=== PATIENT | male | born 1950 | race African-American/Black ===

== ENCOUNTER 2018-07-11 04:58 | Emergency (ER) | payer MEDICARE, OTHER ==
--- NOTE | 2018-07-11 05:25 | ER Document Report ---
ED General - General Chief Complaint: Hip Pain Stated Complaint: HIP INJURY Time Seen by Provider: 07/11/18 05:21 Notes: 68-year-old male diabetic presents with "hip pain" onset yesterday while mowing the lawn. He was pushing a lawnmower down an embankment and pulled back extending his back and lower body to keep it from falling down and experienced pain in his left buttock. When he says hip he points at his left SI joint. It sometimes radiates down the leg but not past the thigh he has no numbness or tingling. He has no fever or chills. Is been walking but limping some. Is not taking any medication. He denies fever chills or neuro symptoms. Denies a history of slipped disc or sciatica. TRAVEL OUTSIDE OF THE [place] IN LAST 30 DAYS: No - Related Data Allergies/Adverse Reactions: No Known Allergies Allergy (Verified 09/16/12 22:04) Past Medical History - Social History Smoking Status: Unknown if Ever Smoked Family History: None - Medical History Medical History: Other - Diabetes - Past Medical History Cardiac Medical History: Reports: Hx Hypertension Denies: Hx Coronary Artery Disease, Hx Heart Attack Pulmonary Medical History: Denies: Hx Asthma, Hx Bronchitis, Hx COPD, Hx Pneumonia Neurological Medical History: Denies: Hx Cerebrovascular Accident, Hx Seizures Endocrine Medical History: Reports: Hx Diabetes Mellitus Type 2 Musculoskeletal Medical History: Denies Hx Arthritis Past Surgical History: Denies: Hx Pacemaker - Immunizations Immunizations up to date: Yes Hx Diphtheria, Pertussis, Tetanus Vaccination: Yes Review of Systems - Review of Systems Notes: REVIEW OF SYSTEMS GEN: Denies fever, chills, weight loss ENT: Denies sore throat, nasal discharge, ear pain EYES: Denies blurry vision, eye pain, discharge CV: Denies chest pain, palpitations, edema RESP: Denies cough, shortness of breath, wheezing GI: Denies abdominal pain, nausea, vomiting, diarrhea MSK: Buttock pain, SKIN: Denies rash, skin lesions LYMPH: Denies swollen glands/lymph nodes NEURO: Denies headache, focal weakness or numbness, dizziness PSYCH: Denies depression, suicidal or homicidal ideation PHYSICAL EXAMINATION General: No acute distress, well-nourished Head: Atraumatic, normocephalic ENT: Mouth normal, oropharynx moist, no exudates or tonsillar enlargement Eyes: Conjunctiva normal, pupils equal, lids normal Neck: No JVD, supple, no guarding CVS: Normal rate, regular rhythm, no murmurs Resp: No resp distress, equal and normal breath sounds bilaterally GI: Nondistended, soft, no tenderness to palpation, no rebound or guarding Ext: No deformities, no edema, normal range of motion in upper and lower ext no pain on axial loading of the hip. Negative straight leg raise test. Hip and buttock X experience no pain with full range of motion of the hip with the knee extended, however the Ilene test is positive Back: No CVA or midline TTP. Minimal tenderness at the left SI joint region. No midline lumbar tenderness. Skin: No rash, warm Lymphatic: No lymphadeopathy noted Neuro: Awake, alert. Face symmetric. GCS 15. Physical Exam - Vital signs Vitals: Temp Pulse Resp BP Pulse Ox 98.2 F 94 18 159/78 H 97 07/11/18 04:58 07/11/18 04:58 07/11/18 04:58 07/11/18 04:58 07/11/18 04:58 Course - Re-evaluation Re-evalutation: 07/11/18 05:33 Patient presents with hip pain which actually seems to be pain around the SI joint on the left side. The hip range of motion is normal, the gait is intact and there is no pain on axial loading or fever so I doubt septic hip or acute arthritis. Also doubt radiculopathy or fracture given the mechanism and exam. Will check an x-ray just to rule out any kind of unexpected inflammation of the left SI joint, or joint widening associated with trauma, however I do not believe the mechanism supports this. If negative the patient will be discharged with supportive care to follow-up with primary. Will avoid NSAIDs for possible CKD, avoid steroids secondary to diabetes, encourage Tylenol and ice. 07/11/18 06:11 X-ray shows DJD of sacroiliac joints. This is likely a strain on top of arthritis. Tylenol heat and follow-up primary care I have discussed with the patient there likely diagnosis, aftercare plan, follow-up plans and my usual and customary return precautions. They verbalized understanding of this. - Vital Signs Vital signs: Temp Pulse Resp BP Pulse Ox 98.2 F 94 18 159/78 H 97 07/11/18 04:58 07/11/18 04:58 07/11/18 04:58 07/11/18 04:58 07/11/18 04:58 - Diagnostic Test Radiology reviewed: Image reviewed, Reports reviewed Discharge - Discharge Clinical Impression: Strain of sacroiliac ligament Qualifiers: Encounter type: initial encounter Qualified Code(s): S33.6XXA - Sprain of sacroiliac joint, initial encounter Condition: Good Disposition: HOME, SELF-CARE Instructions: Upper Back Strain ([facility]) Additional Instructions: The strain in your sacroiliac joint. Please take Tylenol and use a heating pack. I am hesitant to prescribe you ibuprofen or another anti-inflammatory given your diabetes. Please follow-up with your primary care for possible physical therapy. Referrals: NAVDEEP SALES MD [Primary Care Provider] - Follow up as needed
--- NOTE | 2018-07-11 05:51 | RADIOLOGY REPORT (SQ) ---
EXAM DESCRIPTION: XR PELVIS 1-2 VIEWS COMPLETED DATE/TME: 07/11/2018 05:21 CLINICAL HISTORY: 68 years, Male, SI pain COMPARISON: None. NUMBER OF VIEWS: 1 TECHNIQUE: AP view of the pelvis LIMITATIONS: None. FINDINGS: Negative for fracture or dislocation. Degenerative changes of the lower lumbar spine. Minor degenerative change of the SI joints bilaterally. Soft tissues are unremarkable IMPRESSION: Minor degenerative change of the sacroiliac joints and lower lumbar spine 2010 [employer]- All Rights Reserved
[2018-07-11 06:15] VITALS: BP 136/75
== END 2018-07-11 06:25 | disposition home or self-care (01) ==
LOC: ER 04:58
DX: S33.6XXA Sprain of sacroiliac joint, initial encounter (principal); X50.0XXA Overexertion from strenuous movement or load, initial encounter; Y93.H9 Activity, other involving exterior property and land maintenance, building and construction; M16.0 Bilateral primary osteoarthritis of hip; E11.9 Type 2 diabetes mellitus without complications; I10 Essential (primary) hypertension
CPT/HCPCS: 72170; 99283

== ENCOUNTER → 2019-05-19 | Outpatient (CLI) | payer MEDICARE ==
--- NOTE | 2019-05-19 16:35 | RADIOLOGY REPORT (SQ) ---
EXAM DESCRIPTION: CAROTID DOPPLER COMPLETED DATE/TIME: 05/19/2019 3:09 pm REASON FOR STUDY: CAD I77.9 DISORDER OF ARTERIES AND ARTERIOLES, UNSPECIFIED COMPARISON: None. TECHNIQUE: Grayscale ultrasound, Doppler velocity and spectra, and color Doppler images acquired of the extra-cranial carotid and vertebral arteries. Images stored on PACS. LIMITATIONS: None. FINDINGS: RIGHT CAROTID CCA Velocities: Within normal limits. ICA Velocities Peak systolic 123 cm/s. End diastolic 43 cm/s. Proximal ICA/CCA peak systolic ratio 1.8. Spectra normal. No significant plaque. LEFT CAROTID CCA Velocities: Within normal limits. ICA Velocities Peak systolic 90 cm/s. End diastolic 13 cm m/s. Proximal ICA/CCA peak systolic ratio 1.0. Spectra normal. No significant plaque. VERTEBRAL ARTERIES: Antegrade flow. Normal waveforms. SUBCLAVIAN ARTERIES: No finding. OTHER: No other significant finding. IMPRESSION: 1. NO HEMODYNAMICALLY SIGNIFICANT STENOSIS. COMMENT: Quality ID #[id number]: Velocity criteria are extrapolated from the diameter data as defined by t he Society of Radiologists in Ultrasound Consensus Conference. Radiology 2003: 229; 340-346. TECHNICAL DOCUMENTATION: JOB ID: [id number]- All Rights Reserved Reading location - IP/workstation name: [email or web address]
== END ==
LOC: SP 12:40
PROVIDERS: ATTEND Family Medicine
DX: I77.9 Disorder of arteries and arterioles, unspecified (principal)
CPT/HCPCS: 93880

== ENCOUNTER 2019-08-23 13:44 | Inpatient (IN) | payer MEDICARE ==
--- NOTE | 2019-08-23 14:32 | ER Document Report ---
ED Medical Screen (RME) - General Chief Complaint: High Blood Sugar Stated Complaint: BLOOD SUGAR ISSUE Time Seen by Provider: 08/23/19 14:26 Primary Care Provider: NAVDEEP SALES MD [Primary Care Provider] - Follow up as needed Mode of Arrival: Ambulatory Information source: Patient Notes: This 69-year-old male presents emergency department with report of high blood sugar. Patient is a diabetic. He reports that he saw his primary care provider on Saturday. They did switch his diabetic medication because he reports they are concerned about his kidney function. He denies symptoms. Denies fever vomiting diarrhea. Denies urinary frequency. Patient reports his sugar was in the high 300s. He checked it twice. I have greeted and performed a rapid initial assessment of this patient. A comprehensive ED assessment and evaluation of the patient, analysis of test results and completion of the medical decision making process will be conducted by additional ED providers. Dictation of this chart was performed using voice recognition software; therefore, there may be some unintended grammatical errors. TRAVEL OUTSIDE OF THE [place] IN LAST 30 DAYS: No - Related Data Allergies/Adverse Reactions: No Known Allergies Allergy (Verified 08/23/19 14:21) Past Medical History - Past Medical History Cardiac Medical History: Reports: Hx Hypertension Denies: Hx Coronary Artery Disease, Hx Heart Attack Pulmonary Medical History: Denies: Hx Asthma, Hx Bronchitis, Hx COPD, Hx Pneumonia Neurological Medical History: Denies: Hx Cerebrovascular Accident, Hx Seizures Endocrine Medical History: Reports: Hx Diabetes Mellitus Type 2 Renal/ Medical History: Denies: Hx Peritoneal Dialysis Musculoskeltal Medical History: Denies Hx Arthritis Past Surgical History: Denies: Hx Pacemaker - Immunizations Immunizations up to date: Yes Hx Diphtheria, Pertussis, Tetanus Vaccination: Yes Physical Exam - Vital signs Vitals: Temp Pulse Resp BP Pulse Ox 98.0 F 97 18 144/80 H 99 08/23/19 14:05 08/23/19 14:05 08/23/19 14:05 08/23/19 14:05 08/23/19 14:05 Course - Vital Signs Vital signs: Temp Pulse Resp BP Pulse Ox 98.0 F 97 18 144/80 H 99 08/23/19 14:05 08/23/19 14:05 08/23/19 14:05 08/23/19 14:05 08/23/19 14:05 Doctor's Discharge - Discharge Referrals: NAVDEEP SALES MD [Primary Care Provider] - Follow up as needed
[2019-08-23 15:09] LABS: ABSOLUTE LYMPHOCYTES (AUTO) 1.5 10^3/uL (0.5-4.7); ABSOLUTE MONOCYTES (AUTO) 0.8 10^3/uL (0.1-1.4); ABSOLUTE NEUT (AUTO) 5.4 10^3/uL (1.7-8.2); BASOPHILS % (AUTO) 0.4 % (0-2); EOSINOPHILS % (AUTO) 0.6 % (0-6); HEMATOCRIT 41.5 % (37.9-51.0); HEMOGLOBIN 14.2 g/dL (13.5-17.0); LYMPHOCYTES % (AUTO) 19.4 % (13-45); MEAN CORPUSCULAR HEMOGLOBIN 30.5 pg (27.0-33.4); MEAN CORPUSCULAR HGB CONC 34.3 g/dL (32.0-36.0); MEAN CORPUSCULAR VOLUME 89 fl (80-97); PLATELET COUNT 167 10^3/uL (150-450); RED BLOOD COUNT 4.67 10^6/uL (4.35-5.55); RED CELL DISTRIBUTION WIDTH 12.3 % (11.5-14.0); SEGMENTED NEUTROPHILS % (AUTO) 69.6 % (42-78); TOTAL CELLS COUNTED % (AUTO) 100 %; WHITE BLOOD COUNT 7.7 10^3/uL (4.0-10.5)
[2019-08-23] MEDS ORDERED: NORMAL SALINE 1000 ML 1,000 ML IV ONE ×2 (15:11→16:21)
[2019-08-23] MEDS ORDERED: INSULIN REG, HUMAN 100 UNIT/ML 3 ML VIAL (PYX) IV ONE (15:16)
[2019-08-23 15:19] LABS: APPEARANCE,URINE CLEAR; BILIRUBIN,URINE NEGATIVE (NEGATIVE); COLOR,URINE YELLOW; GLUCOSE, URINE >=500 mg/dL (NEGATIVE); KETONES,URINE NEGATIVE (NEGATIVE); LEUKOCYTE ESTERASE,URINE TRACE (NEGATIVE); NITRITE,URINE NEGATIVE (NEGATIVE); PROTEIN,URINE NEGATIVE (NEGATIVE); URINE SPECIFIC GRAVITY 1.013; UROBILINOGEN,URINE NEGATIVE mg/dL (<2.0)
[2019-08-23 15:22] LABS: VENOUS BLOOD BASE EXCESS -5.1 mmol/L; VENOUS BLOOD HCO3 21.1 mmol/L (20-32); VENOUS BLOOD PCO2 43.2 mmHg (35-63); VENOUS BLOOD PH 7.31 (7.30-7.42)
--- NOTE | 2019-08-23 15:29 | ER Document Report ---
ED General - General Chief Complaint: High Blood Sugar Stated Complaint: BLOOD SUGAR ISSUE Time Seen by Provider: 08/23/19 14:26 Primary Care Provider: NAVDEEP SALES MD [Primary Care Provider] - Follow up as needed Mode of Arrival: Ambulatory TRAVEL OUTSIDE OF THE [place] IN LAST 30 DAYS: No - HPI Notes: 69-year-old male with a history of type 2 diabetes, hypertension presents to the emergency room for evaluation of blood sugars in the 300s. Patient was seen by Dr. Sales's office on Saturday, he was taken off of metformin and placed on Trulicity for concerns of the metformin causing HEAVEN. Patient said he checked his blood sugar today and it was in the 300s and typically it is in the 125, with a hemoglobin A1c of 7. Has reported polyuria, polydipsia, denies any polyphagia. Patient was supposed to be reevaluated by his primary care provider tomorrow to check his Creatitine and BUN. Patient is denying any chest pain, shortness of breath, nausea, vomiting or diarrhea, no abdominal pain. Patient did have a cardiac stress test done in April 2019 which was ordered by Dr. Sales, which was negative for any acute findings. - Related Data Allergies/Adverse Reactions: No Known Allergies Allergy (Verified 08/23/19 14:21) Past Medical History - General Information source: Patient - Social History Smoking Status: Unknown if Ever Smoked Chew tobacco use (# tins/day): No Family History: None Patient has suicidal ideation: No Patient has homicidal ideation: No - Past Medical History Cardiac Medical History: Reports: Hx Hypertension Denies: Hx Coronary Artery Disease, Hx Heart Attack Pulmonary Medical History: Denies: Hx Asthma, Hx Bronchitis, Hx COPD, Hx Pneumonia Neurological Medical History: Denies: Hx Cerebrovascular Accident, Hx Seizures Endocrine Medical History: Reports: Hx Diabetes Mellitus Type 2 Renal/ Medical History: Denies: Hx Peritoneal Dialysis Musculoskeletal Medical History: Denies Hx Arthritis Past Surgical History: Denies: Hx Pacemaker - Immunizations Immunizations up to date: Yes Hx Diphtheria, Pertussis, Tetanus Vaccination: Yes Review of Systems - Review of Systems Constitutional: See HPI EENT: No symptoms reported Cardiovascular: No symptoms reported Respiratory: No symptoms reported Gastrointestinal: No symptoms reported Genitourinary: No symptoms reported Male Genitourinary: No symptoms reported Musculoskeletal: No symptoms reported Skin: No symptoms reported Hematologic/Lymphatic: No symptoms reported Neurological/Psychological: No symptoms reported Physical Exam - Vital signs Vitals: Temp Pulse Resp BP Pulse Ox 98.0 F 97 18 144/80 H 99 08/23/19 14:05 08/23/19 14:05 08/23/19 14:05 08/23/19 14:05 08/23/19 14:05 - Notes Notes: PHYSICAL EXAMINATION:reviewed vital signs by RN GENERAL: Well-appearing, well-nourished and in no acute distress. HEAD: Atraumatic, normocephalic. EYES: Pupils equal round and reactive to light, extraocular movements intact, sclera anicteric, conjunctiva are normal. ENT: Nares patent, oropharynx clear without exudates. Moist mucous membranes. NECK: Normal range of motion, supple without lymphadenopathy LUNGS: Breath sounds clear to auscultation bilaterally and equal. No wheezes rales or rhonchi. HEART: Regular rate and rhythm without murmurs ABDOMEN: Soft, nontender, nondistended abdomen. No guarding, no rebound. No masses appreciated. scant right CVA tenderness Musculoskeletal: Normal range of motion, no pitting or edema. No cyanosis. NEUROLOGICAL: Cranial nerves grossly intact. Normal speech, normal gait. Normal sensory, motor exams PSYCH: Normal mood, normal affect. SKIN: Warm, Dry, normal turgor, no rashes or lesions noted. Course - Re-evaluation Re-evalutation: 08/23/19 16:13 Afebrile slightly hypertensive no distress. Nurse's notes reviewed. CBC negative for leukocytosis and anemia, CMP negative for hepatic dysfunction, no electrolyte disturbances, creatinine is 3.88, BUN is 70. No previous creatinine to compare besides one from 2013, which was normal. Patient is unsure of what his creatinine is however his PCP, Dr. Sales, stated that his creatinine was worsening, they switched him off of metformin for this reason and he did have a repeat BMP tomorrow and follow-up with his primary care in 3 days. Patient is receiving IV hydration patient was switched from lisinopril to amlodipine as well for his blood pressure management and patient was recently placed on 12.[address] Stanford who is covering for Dr. Sales, due for concerns of acute kidney injury and hyperglycemia. Will obtain renal ultrasound to make sure there is no renal stone, patient did have a renal ultrasound done on August 13 which was negative however he also did have a creatinine of 3.9. will admit for observation to telemetry floor and Dr. Stanford is taking over management of this patient. Patient was agreeable this plan of care to stay for observation and IV hydration - Vital Signs Vital signs: Temp Pulse Resp BP Pulse Ox 98.0 F 97 18 144/80 H 99 08/23/19 14:05 08/23/19 14:05 08/23/19 14:05 08/23/19 14:05 08/23/19 14:05 - Laboratory Result Diagrams: 08/23/19 14:44 08/23/19 14:44 Laboratory results interpreted by me: 08/23/19 08/23/19 08/23/19 14:33 14:44 14:57 Sodium 134.5 L Chloride 94 L BUN 70 H Creatinine 3.88 H Est GFR ( Amer) 19 L Est GFR (MDRD) Non-Af 15 L Glucose 345 H POC Glucose 351 H Total Protein 8.3 H Urine Glucose (UA) >=500 H Ur Leukocyte Esterase TRACE H Discharge - Discharge Clinical Impression: HEAVEN (acute kidney injury), Hyperglycemia due to type 2 diabetes mellitus Condition: Stable Disposition: ADMITTED OBSERVATION Admitting Provider: Abdoulaye Unit Admitted: Telemetry Referrals: NAVDEEP SALES MD [Primary Care Provider] - Follow up as needed
[2019-08-23 15:41] LABS: ALBUMIN 4.9 g/dL (3.5-5.0); ALKALINE PHOSPHATASE 98 U/L (38-126); ANION GAP 19 (5-19); ASPARTATE AMINO TRANSFERASE 26 U/L (17-59); BILIRUBIN,DIRECT 0.3 mg/dL (0.0-0.4); BILIRUBIN,TOTAL 0.7 mg/dL (0.2-1.3); BLOOD UREA NITROGEN 70 mg/dL (7-20); CALCIUM 10.2 mg/dL (8.4-10.2); CARBON DIOXIDE 22 mmol/L (22-30); CHLORIDE 94 mmol/L (98-107); GLUCOSE 345 mg/dL (75-110); POTASSIUM 4.9 mmol/L (3.6-5.0); TOTAL PROTEIN 8.3 g/dL (6.3-8.2)
--- NOTE | 2019-08-23 17:30 | RADIOLOGY REPORT (SQ) ---
EXAM DESCRIPTION: U/S RETROPERITON LTD COMPLETED DATE/TIME: 08/23/2019 4:50 pm REASON FOR STUDY: R flank pain, Cr 3.88, HEAVEN COMPARISON: 08/10/2019 TECHNIQUE: Dynamic and static grayscale images acquired of the kidneys and bladder and recorded on P ACS. Additional selected color Doppler and spectral images recorded. LIMITATIONS: None. FINDINGS: RIGHT KIDNEY: Normal size. 1 cm upper pole cyst. No solid or suspicious masses. No hydron ephrosis. No calcifications. LEFT KIDNEY: Normal size. 5.1 x 4 x 3.3 cm complex upper pole cyst. No solid or suspicious masses. No hydronephrosis. No calcifications. BLADDER: No masses. OTHER FINDINGS: No other significant finding. IMPRESSION: No acute findings. Bilateral cysts. TECHNICAL DOCUMENTATION: JOB ID: [id number] [place]-72 2010 [employer]- All Rights Reserved Reading location - IP/workstation name: [employer]
--- NOTE | 2019-08-23 19:34 | EKG REPORT ---
SEVERITY:- ABNORMAL ECG - SINUS RHYTHM CONSIDER ANTEROSEPTAL INFARCT : Confirmed by: Harmony Figueredo MD 23-Aug-2019 19:33:22
[2019-08-23] MEDS ORDERED: DEXTROSE 50%-WATER 25 GM/50 ML DISP.SYRIN IV PRN ×2 (20:03)
[2019-08-23] MEDS ORDERED: NORMAL SALINE 1000 ML 1,000 ML IV PRN (20:03)
[2019-08-23] MEDS ORDERED: GLUCAGON,HUMAN RECOMB 1 MG INJ IM PRN (20:03)
[2019-08-23] MEDS ORDERED: DEXTROSE 40% GEL 15 GM TUBE PO PRN ×2 (20:03)
[2019-08-23] MEDS: NORMAL SALINE 1000 ML 1,000 ML IV PRN (21:05)
[2019-08-23] MEDS ORDERED: AMLODIPINE BESYLATE 2.5 MG TABLET ONE (21:49)
[2019-08-23] MEDS: ATORVASTATIN CALCIUM 10 MG TABLET PO SCH (21:49)
[2019-08-23] MEDS: HEPARIN SOD (PORCINE) 5,000 UNIT/ML 1 ML VIAL SUBCUT SCH (21:50)
[2019-08-23] MEDS: INSULIN LISPRO 100 UNIT/ML 3 ML VIAL SUBCUT SCH (21:50)
[2019-08-23] MEDS: AMLODIPINE BESYLATE 2.5 MG TABLET PO SCH (21:56)
--- NOTE | 2019-08-23 23:51 | PDOC H&P ---
History of Present Illness Admission Date/PCP: 08/23/19 16:18 NAVDEEP SALES MD Patient complains of: High blood sugar History of Present Illness: AIDAN MILLARD is a 69 year old male patient of Dr. Sales who presented to the ED due to persistently elevated home blood glucose level. Patient was recently taken of oral hypoglycemia agent including Metformin due to worsening renal indices few days ago by his PCP. Patient presented his serial serum creatinine and BUN via patient portal service that revealed upward trend in his values from 09/02/2018 to 08/23/2019 from .09/08 to 3.. He was started on Tresiba insulin therapy. He reported that his home accuchek has been in 300's mg/dL. He reported associated polyuria, polydipsia, and tingling sensation in his feet. He claimed compliance with his prescribed medication and dietary restriction. He reported using 5 units of Tresiba as prescribed. He denied any associated dysuria,, flank pain, hematuria, fever, or chills. No chest pain, palpitation, or difficulty with breathing. No nausea, vomiting or abdominal pain. No diarrhea or constipation. Patient portal review of renal ultrasound suggested medical renal disease process with left renal cyst lesion. No demonstrable hydronephrosis. He was advised hospitalization due to his ED evaluation suggestive of uncontrolled diabetes mellitus with significant hyperglycemia and worsening renal failure indices. His morbidities are as listed below. Past Medical History Cardiac Medical History: Reports: Hypertension Denies: Coronary Artery Disease, Myocardial Infarction Pulmonary Medical History: Denies: Asthma, Bronchitis, Chronic Obstructive Pulmonary Disease (COPD), Pneumonia Neurological Medical History: Denies: Seizures Endocrine Medical History: Reports: Diabetes Mellitus Type 2 Renal/ Medical History: Reports: Chronic Kidney Disease Musculoskeltal Medical History: Denies: Arthritis Hematology: Denies: Anemia Past Surgical History Past Surgical History: Denies: Pacemaker Social History Smoking Status: Never Smoker Electronic Cigarette use?: No Family History Family History: None Parental Family History Reviewed: Yes Children Family History Reviewed: Yes Sibling(s) Family History Reviewed.: Yes Medication/Allergy Home Medications: Amlodipine Besylate [Norvasc 2.5 mg Tablet] 2.5 mg PO Q12 08/23/19 Aspirin [Ecotrin 81 mg EC Tablet] 81 mg PO DAILY 08/23/19 Atorvastatin Calcium [Lipitor 10 mg Tablet] 10 mg PO QHS 08/23/19 Brimonidine Tartrate [Alphagan P] 1 drop OU BID 08/23/19 Cinnamon Complex 3,000 mg PO DAILY 08/23/19 Glipizide [Glucotrol 5 mg Tablet] 2.5 mg PO BIDBS 08/23/19 Hydrochlorothiazide [Hydrodiuril 12.5 mg Tablet] 12.5 mg PO QAM 08/23/19 Multivit-Min/FA/Lycopen/Lutein [Centrum Silver Men Tablet] 1 each PO DAILY 08/23/19 [place]-3 Fatty Acids/Fish Oil [Fish Oil 1,000 Mg Capsule] 1 each PO DAILY 08/23/19 Sitagliptin Phosphate [Januvia 50 mg Tablet] 50 mg PO DAILY 08/23/19 Turmeric/Turmeric Root Extract [Turmeric 500 mg Capsule] 1 each PO DAILY 08/23/19 Ubidecarenone/Vit E Acet [Co Q-10 100 mg Softgel] 2 each PO DAILY 08/23/19 Allergies/Adverse Reactions: No Known Allergies Allergy (Verified 08/23/19 14:21) Review of Systems Constitutional: ABSENT: chills, fever(s), headache(s), weight gain, weight loss Eyes: ABSENT: visual disturbances Ears: ABSENT: hearing changes Nose, Mouth, and Throat: ABSENT: headache(s), mouth pain, sore throat, vertigo Cardiovascular: ABSENT: chest pain, dyspnea on exertion, edema, orthropnea, palpitations Respiratory: ABSENT: cough, hemoptysis Gastrointestinal: ABSENT: abdominal pain, constipation, diarrhea, hematemesis, hematochezia, nausea, vomiting Genitourinary: ABSENT: dysuria, hematuria Musculoskeletal: ABSENT: joint swelling Integumentary: ABSENT: rash, wounds Neurological: PRESENT: tingling - in feet, right >> left with some degree of soreness. ABSENT: abnormal gait, abnormal speech, confusion, dizziness, focal weakness, syncope Psychiatric: ABSENT: anxiety, depression, homidical ideation, suicidal ideation Endocrine: PRESENT: polydipsia, polyuria. ABSENT: as per HPI, cold intolerance, flushing, heat intolerance, polyphagia Hematologic/Lymphatic: ABSENT: easy bleeding, easy bruising, lymphadenopathy Allergic/Immunologic: ABSENT: seasonal rhinorrhea Physical Exam Vital Signs: Temp Pulse Resp BP Pulse Ox 98.0 F 76 15 130/67 H 100 08/23/19 17:46 08/23/19 17:46 08/23/19 17:46 08/23/19 17:46 08/23/19 17:46 Intake & Output 08/22/19 08/23/19 08/24/19 06:59 06:59 06:59 Intake Total 1000 Balance 1000 Weight 71.3 kg General appearance: PRESENT: no acute distress, well-developed, well-nourished Head exam: PRESENT: atraumatic, normocephalic Eye exam: PRESENT: conjunctiva pink, EOMI, PERRLA. ABSENT: scleral icterus Ear exam: PRESENT: TM's normal bilaterally Mouth exam: PRESENT: moist Neck exam: PRESENT: full ROM. ABSENT: carotid bruit, JVD, lymphadenopathy, thyromegaly Respiratory exam: PRESENT: clear to auscultation samantha Cardiovascular exam: PRESENT: RRR. ABSENT: diastolic murmur, rubs, systolic murmur Vascular exam: PRESENT: normal capillary refill. ABSENT: pallor GI/Abdominal exam: PRESENT: normal bowel sounds, soft. ABSENT: distended, guarding, mass, organolmegaly, rebound, tenderness Rectal exam: PRESENT: deferred Extremities exam: PRESENT: tenderness - palpatiomn of right foot anterion aspect of sole surface. ABSENT: pedal edema Musculoskeletal exam: PRESENT: ambulatory Neurological exam: PRESENT: alert, awake, oriented to person, oriented to place, oriented to time, oriented to situation, CN II-XII grossly intact. ABSENT: motor sensory deficit Psychiatric exam: PRESENT: appropriate affect, normal mood. ABSENT: homicidal ideation, suicidal ideation Skin exam: PRESENT: dry, warm Results Laboratory Results: 08/23/19 14:44 08/23/19 14:44 08/23/19 08/23/19 08/23/19 14:33 14:44 14:44 WBC 7.7 RBC 4.67 Hgb 14.2 Hct 41.5 MCV 89 MCH 30.5 MCHC 34.3 RDW 12.3 Plt Count 167 Seg Neutrophils % 69.6 VBG pH VBG pCO2 VBG HCO3 VBG Base Excess Sodium 134.5 L Potassium 4.9 Chloride 94 L Carbon Dioxide 22 Anion Gap 19 BUN 70 H Creatinine 3.88 H Est GFR ( Amer) 19 L Glucose 345 H Calcium 10.2 Total Bilirubin 0.7 AST 26 Alkaline Phosphatase 98 Total Protein 8.3 H Albumin 4.9 Urine Color YELLOW Urine Appearance CLEAR Urine pH 5.0 Ur Specific [place] 1.013 Urine Protein NEGATIVE Urine Glucose (UA) >=500 H Urine Ketones NEGATIVE Urine Blood NEGATIVE Urine Nitrite NEGATIVE Ur Leukocyte Esterase TRACE H Urine WBC (Auto) 7 Urine RBC (Auto) 1 08/23/19 15:00 WBC RBC Hgb Hct MCV MCH MCHC RDW Plt Count Seg Neutrophils % VBG pH 7.31 VBG pCO2 43.2 VBG HCO3 21.1 VBG Base Excess -5.1 Sodium Potassium Chloride Carbon Dioxide Anion Gap BUN Creatinine Est GFR ( Amer) Glucose Calcium Total Bilirubin AST Alkaline Phosphatase Total Protein Albumin Urine Color Urine Appearance Urine pH Ur Specific [place] Urine Protein Urine Glucose (UA) Urine Ketones Urine Blood Urine Nitrite Ur Leukocyte Esterase Urine WBC (Auto) Urine RBC (Auto) Impressions: Renal Ultrasound 08/23/19 15:56 IMPRESSION: No acute findings. Bilateral cysts. Assessment & Plan - Diagnosis (1) Acute renal failure superimposed on stage 3 chronic kidney disease Is this a current diagnosis for this admission?: Yes Plan: See covering attending physician orders for details about care plan. (2) Hyperglycemia due to type 2 diabetes mellitus Qualifiers: Diabetes mellitus snf insulin use: without snf use Qualified Code(s): E11.65 - Type 2 diabetes mellitus with hyperglycemia Is this a current diagnosis for this admission?: Yes Plan: See covering attending physician orders for details about care plan. (3) Peripheral sensory neuropathy due to type 2 diabetes mellitus Is this a current diagnosis for this admission?: Yes Plan: See covering attending physician orders for details about care plan. (4) HTN, goal below 130/80 Is this a current diagnosis for this admission?: Yes Plan: See covering attending physician orders for details about care plan. - Time Time Spent: 50 to 70 Minutes Medications reviewed and adjusted accordingly: Yes Anticipated discharge: Home Within: within 48 hours - Inpatient Certification Based on my medical assessment, after consideration of the patient's c omorbidities, presenting symptoms, or acuity I expect that the services needed warrant INPATIENT care.: Yes I certify that my determination is in accordance with my understanding of Medicare's requirements for reasonable and necessary INPATIENT services [42 CFR 412.3e].: Yes Medical Necessity: Significant Comorbidiites Make Outpatient Treatment Too Risky, Need Close Monitoring Due to Risk of Patient Decompensation, Need For IV Fluids, Need For Continuous Telemetry Monitoring, Risk of Complication if Not Cared For in Hospital, Risk of Diagnosis Which Will Require Inpatient Eval/Care/Monitoring Post Hospital Care: D/C Spa Supervisor Documentation - Plan Summary Plan Summary: See covering attending physician orders for details about care plan.
[2019-08-24] MEDS ORDERED: INSULIN GLARGINE,HUM.REC.ANLOG 1,000 UNIT/10 ML VIAL (PYX) SUBCUT PRN (00:09)
[2019-08-24] MEDS ORDERED: INSULIN GLARGINE,HUM.REC.ANLOG 1,000 UNIT/10 ML VIAL (PYX) SUBCUT ONE (00:14)
[2019-08-24] MEDS ORDERED: INSULIN GLARGINE,HUM.REC.ANLOG 1,000 UNIT/10 ML VIAL SUBCUT ONE (00:30)
[2019-08-24] MEDS: HEPARIN SOD (PORCINE) 5,000 UNIT/ML 1 ML VIAL SUBCUT SCH ×3 (05:23→23:16)
[2019-08-24] MEDS: PANTOPRAZOLE SODIUM 40 MG TABLET.DR PO SCH (05:23)
[2019-08-24] MEDS: NORMAL SALINE 1000 ML 1,000 ML IV PRN (05:27)
[2019-08-24 05:33] LABS: ABSOLUTE EOSINOPHILS # (AUTO) 0.1 10^3/uL (0.0-0.6); ABSOLUTE LYMPHOCYTES (AUTO) 1.6 10^3/uL (0.5-4.7); ABSOLUTE MONOCYTES (AUTO) 0.9 10^3/uL (0.1-1.4); ABSOLUTE NEUT (AUTO) 4.6 10^3/uL (1.7-8.2); BASOPHILS % (AUTO) 0.3 % (0-2); HEMATOCRIT 38.1 % (37.9-51.0); HEMOGLOBIN 13.2 g/dL (13.5-17.0); LYMPHOCYTES % (AUTO) 22.1 % (13-45); MEAN CORPUSCULAR HEMOGLOBIN 30.6 pg (27.0-33.4); MEAN CORPUSCULAR HGB CONC 34.7 g/dL (32.0-36.0); MEAN CORPUSCULAR VOLUME 88 fl (80-97); MONOCYTES % (AUTO) 12.6 % (3-13); PLATELET COUNT 158 10^3/uL (150-450); RED BLOOD COUNT 4.32 10^6/uL (4.35-5.55); RED CELL DISTRIBUTION WIDTH 12.4 % (11.5-14.0); TOTAL CELLS COUNTED % (AUTO) 100 %; WHITE BLOOD COUNT 7.2 10^3/uL (4.0-10.5)
[2019-08-24 05:55] LABS: ALBUMIN 4.2 g/dL (3.5-5.0); ALKALINE PHOSPHATASE 83 U/L (38-126); ANION GAP 14 (5-19); ASPARTATE AMINO TRANSFERASE 23 U/L (17-59); BILIRUBIN,DIRECT 0.1 mg/dL (0.0-0.4); BILIRUBIN,TOTAL 0.8 mg/dL (0.2-1.3); BLOOD UREA NITROGEN 60 mg/dL (7-20); CALCIUM 9.7 mg/dL (8.4-10.2); CARBON DIOXIDE 24 mmol/L (22-30); CHLORIDE 103 mmol/L (98-107); GLUCOSE 117 mg/dL (75-110); POTASSIUM 4.6 mmol/L (3.6-5.0); TOTAL PROTEIN 7.3 g/dL (6.3-8.2); TRIGLYCERIDES 107 mg/dL (<150)
[2019-08-24 06:05] LABS: DIRECT LDL 50 mg/dL (<100)
[2019-08-24] MEDS: INSULIN LISPRO 100 UNIT/ML 3 ML VIAL SUBCUT SCH ×4 (07:56→23:12)
[2019-08-24] MEDS ORDERED: VIT E ACET PO SCH (10:00)
[2019-08-24] MEDS ORDERED: UBIDECARENONE PO SCH (10:00)
[2019-08-24] MEDS: OMEGA-3 ACID ETHYL ESTERS 1 GM CAPSULE PO SCH (10:42)
[2019-08-24] MEDS: GLIPIZIDE 5 MG TABLET PO SCH ×2 (10:42→19:32)
[2019-08-24] MEDS: MULTIVITAMIN TABLET PO SCH (10:43)
[2019-08-24] MEDS: SITAGLIPTIN PHOSPHATE 50 MG TABLET PO SCH (10:43)
[2019-08-24] MEDS: AMLODIPINE BESYLATE 2.5 MG TABLET PO SCH ×2 (10:43→23:16)
[2019-08-24] MEDS: ASPIRIN 81 MG TABLET, ENT COATED PO SCH (10:43)
[2019-08-24] MEDS: BRIMONIDINE TARTRATE 0.2% OPH SOLN 5 ML OU SCH ×2 (10:56→19:34)
--- NOTE | 2019-08-24 12:11 | PDOC PROGRESS REPORT ---
Subjective Progress Note for:: 08/24/19 Subjective:: Patient continue to demonstrated significant hyperglycemia. He is currently on 10 units of Lantus insulin qhs. Patient has been on Tresiba on outpatient but not on formulary in the hospital. No chest pain or difficulty with breathing. No nausea, vomiting, abdominal pain, diarrhea or constipation. No fever or chills. Reason For Visit: ACUTE ON CHRONIC KIDNEY FAILURE, UNCONTROLLED Physical Exam Vital Signs: Temp Pulse Resp BP Pulse Ox 98.1 F 81 15 127/65 H 100 08/24/19 07:23 08/24/19 07:23 08/24/19 07:23 08/24/19 07:23 08/24/19 07:23 Intake & Output 08/23/19 08/24/19 08/25/19 06:59 06:59 06:59 Intake Total 1837 Balance 1837 Weight 72.7 kg General appearance: PRESENT: no acute distress Head exam: PRESENT: atraumatic, normocephalic Eye exam: PRESENT: conjunctiva pink. ABSENT: scleral icterus Ear exam: PRESENT: normal external ear exam Mouth exam: PRESENT: moist Respiratory exam: PRESENT: clear to auscultation samantha Cardiovascular exam: PRESENT: RRR. ABSENT: diastolic murmur, rubs, systolic murmur Vascular exam: ABSENT: pallor GI/Abdominal exam: PRESENT: normal bowel sounds, soft. ABSENT: distended, guarding, mass, organolmegaly, rebound, tenderness Extremities exam: ABSENT: pedal edema Musculoskeletal exam: PRESENT: ambulatory Neurological exam: PRESENT: alert, awake, oriented to person, oriented to place, oriented to time, oriented to situation, CN II-XII grossly intact. ABSENT: motor sensory deficit Psychiatric exam: PRESENT: appropriate affect, normal mood. ABSENT: homicidal ideation, suicidal ideation Skin exam: PRESENT: dry, warm Results Laboratory Results: 08/24/19 05:07 08/24/19 05:07 08/23/19 08/23/19 08/23/19 14:33 14:44 14:44 WBC 7.7 RBC 4.67 Hgb 14.2 Hct 41.5 MCV 89 MCH 30.5 MCHC 34.3 RDW 12.3 Plt Count 167 Seg Neutrophils % 69.6 VBG pH VBG pCO2 VBG HCO3 VBG Base Excess Sodium 134.5 L Potassium 4.9 Chloride 94 L Carbon Dioxide 22 Anion Gap 19 BUN 70 H Creatinine 3.88 H Est GFR ( Amer) 19 L Glucose 345 H Calcium 10.2 Total Bilirubin 0.7 AST 26 Alkaline Phosphatase 98 Total Protein 8.3 H Albumin 4.9 Triglycerides Cholesterol LDL Cholesterol Direct VLDL Cholesterol HDL Cholesterol Urine Color YELLOW Urine Appearance CLEAR Urine pH 5.0 Ur Specific [place] 1.013 Urine Protein NEGATIVE Urine Glucose (UA) >=500 H Urine Ketones NEGATIVE Urine Blood NEGATIVE Urine Nitrite NEGATIVE Ur Leukocyte Esterase TRACE H Urine WBC (Auto) 7 Urine RBC (Auto) 1 08/23/19 08/24/19 08/24/19 15:00 05:07 05:07 WBC 7.2 RBC 4.32 L Hgb 13.2 L Hct 38.1 MCV 88 MCH 30.6 MCHC 34.7 RDW 12.4 Plt Count 158 Seg Neutrophils % 64.0 VBG pH 7.31 VBG pCO2 43.2 VBG HCO3 21.1 VBG Base Excess -5.1 Sodium 141.1 Potassium 4.6 Chloride 103 Carbon Dioxide 24 Anion Gap 14 BUN 60 H Creatinine 3.29 H Est GFR ( Amer) 23 L Glucose 117 H Calcium 9.7 Total Bilirubin 0.8 AST 23 Alkaline Phosphatase 83 Total Protein 7.3 Albumin 4.2 Triglycerides 107 Cholesterol 116.10 LDL Cholesterol Direct 50 VLDL Cholesterol 21.0 HDL Cholesterol 38 L Urine Color Urine Appearance Urine pH Ur Specific [place] Urine Protein Urine Glucose (UA) Urine Ketones Urine Blood Urine Nitrite Ur Leukocyte Esterase Urine WBC (Auto) Urine RBC (Auto) Impressions: Renal Ultrasound 08/23/19 15:56 IMPRESSION: No acute findings. Bilateral cysts. Assessment & Plan - Diagnosis (1) Acute renal failure superimposed on stage 3 chronic kidney disease Is this a current diagnosis for this admission?: Yes (2) Uncontrolled type 2 diabetes mellitus Qualifiers: Glycemic state: with hyperglycemia Qualified Code(s): E11.65 - Type 2 diabetes mellitus with hyperglycemia Is this a current diagnosis for this admission?: Yes Plan: D/C Lantus Insulin. Allow patient to use his supply of Tresiba and increase dose to 15 units qhs. Continue IV hydration support. Maintain on all other current medication management. (3) Peripheral sensory neuropathy due to type 2 diabetes mellitus Is this a current diagnosis for this admission?: Yes (4) HTN, goal below 130/80 Is this a current diagnosis for this admission?: Yes - Time Time Spent with patient: 25-34 minutes Level of Care: TELE Medications reviewed and adjusted accordingly: Yes Anticipated discharge: Home with Homehealth Within: Other - Inpatient Certification Based on my medical assessment, after consideration of the patient's comorbidities, presenting symptoms, or acuity I expect that the services needed warrant INPATIENT care.: Yes I certify that my determination is in accordance with my understanding of Medicare's requirements for reasonable and necessary INPATIENT services [42 CFR 412.3e].: Yes Medical Necessity: Significant Comorbidiites Make Outpatient Treatment Too Risky, Need Close Monitoring Due to Risk of Patient Decompensation, Need For IV Fluids, Need For Continuous Telemetry Monitoring, Risk of Complication if Not Cared For in Hospital, Risk of Diagnosis Which Will Require Inpatient Eval/Care/Monitoring Post Hospital Care: D/C Post Doctoral Fellow Documentation - Plan Summary Plan Summary: See covering attending physician orders for details about care plan.
[2019-08-24] MEDS ORDERED: INSULIN GLARGINE,HUM.REC.ANLOG 1,000 UNIT/10 ML VIAL SUBCUT SCH (22:00)
[2019-08-24] MEDS: ATORVASTATIN CALCIUM 10 MG TABLET PO SCH (23:16)
[2019-08-25] MEDS: HEPARIN SOD (PORCINE) 5,000 UNIT/ML 1 ML VIAL SUBCUT SCH ×2 (05:58→15:31)
[2019-08-25] MEDS: PANTOPRAZOLE SODIUM 40 MG TABLET.DR PO SCH (05:58)
[2019-08-25] MEDS: INSULIN LISPRO 100 UNIT/ML 3 ML VIAL SUBCUT SCH ×3 (08:35→16:25)
[2019-08-25] MEDS: GLIPIZIDE 5 MG TABLET PO SCH (08:44)
[2019-08-25] MEDS: NORMAL SALINE 1000 ML 1,000 ML IV PRN (11:06)
[2019-08-25] MEDS: SITAGLIPTIN PHOSPHATE 50 MG TABLET PO SCH (11:07)
[2019-08-25] MEDS: MULTIVITAMIN TABLET PO SCH (11:07)
[2019-08-25] MEDS: OMEGA-3 ACID ETHYL ESTERS 1 GM CAPSULE PO SCH (11:07)
[2019-08-25] MEDS: ASPIRIN 81 MG TABLET, ENT COATED PO SCH (11:07)
[2019-08-25] MEDS: AMLODIPINE BESYLATE 2.5 MG TABLET PO SCH (11:07)
[2019-08-25] MEDS: BRIMONIDINE TARTRATE 0.2% OPH SOLN 5 ML OU SCH (11:35)
--- NOTE | 2019-08-25 14:54 | PDOC DISCHARGE SUMMARY ---
Impression - Admit/DC Date/PCP Admission Date/Primary Care Provider: 08/23/19 20:26 NAVDEEP SALES MD Discharge Date: 08/25/19 - Discharge Diagnosis (1) Acute renal failure superimposed on stage 3 chronic kidney disease Is this a current diagnosis for this admission?: Yes (2) Uncontrolled type 2 diabetes mellitus Is this a current diagnosis for this admission?: Yes (3) Peripheral sensory neuropathy due to type 2 diabetes mellitus Is this a current diagnosis for this admission?: Yes (4) HTN, goal below 130/80 Is this a current diagnosis for this admission?: Yes - Assessment Summary: Patient was admitted for significant hyperglycemia and acute on chronic kidney failure. He was managed with IV hydration and adjustment in his diabetes mellitus management. He will follow up with Dr. Sales as instructed upon discharge. - Additional Information Resuscitation Status: Full Code Discharge Diet: Cardiac, Diabetic Discharge Activity: Activity As Tolerated Referrals: NAVDEEP SALES MD [Primary Care Provider] - 09/03/19 10:00 am (call office to confirm appointment) Prescriptions: Insulin Lispro [Humalog Kwikpen U-100] 0 - 12 unit SQ ACHS 30 Days insuln.pen Insulin Degludec [Tresiba Flextouch U-100] 15 unit SQ QHS #5 insuln.pen Home Medications: Amlodipine Besylate [Norvasc 2.5 mg Tablet] 2.5 mg PO Q12 08/23/19 Aspirin [Ecotrin 81 mg EC Tablet] 81 mg PO DAILY 08/23/19 Atorvastatin Calcium [Lipitor 10 mg Tablet] 10 mg PO QHS 08/23/19 Brimonidine Tartrate [Alphagan P] 1 drop OU BID 08/23/19 Cinnamon Complex 3,000 mg PO DAILY 08/23/19 Hydrochlorothiazide [Hydrodiuril 12.5 mg Tablet] 12.5 mg PO QAM 08/23/19 Multivit-Min/FA/Lycopen/Lutein [Centrum Silver Men Tablet] 1 each PO DAILY 08/23/19 [place]-3 Fatty Acids/Fish Oil [Fish Oil 1,000 mg Capsule] 1 each PO DAILY 08/23/19 Sitagliptin Phosphate [Januvia 50 mg Tablet] 50 mg PO DAILY 08/23/19 Turmeric/Turmeric Root Extract [Turmeric 500 mg Capsule] 1 each PO DAILY 08/23/19 Ubidecarenone/Vit E Acet [Co Q-10 100 mg Softgel] 2 each PO DAILY 08/23/19 Insulin Degludec [Tresiba Flextouch U-100] 15 unit SQ QHS #5 insuln.pen 08/25/19 Insulin Lispro [Humalog Kwikpen U-100] 0 - 12 unit SQ ACHS 30 Days insuln.pen 08/25/19 History of Present Illiness History of Present Illness: AIDAN MILLARD is a 69 year old male patient of Dr. Sales who presented to the ED due to persistently elevated home blood glucose level. Patient was recently taken of oral hypoglycemia agent including Metformin due to worsening renal indices few days ago by his PCP. Patient presented his serial serum creatinine and BUN via patient portal service that revealed upward trend in his values from 09/02/2018 to 08/23/2019 from 1.09/08 to 3.8/33. He was started on Tresiba insulin therapy. He reported that his home accuchek has been in 300's mg/dL. He reported associated polydipsia, polyuria, and tingling sensation in his feet. He claimed compliance with his prescribed medication and dietary restriction. He reported using 5 units of Tresiba as prescribed. He denied any associated dys uria,, flank pain, hematuria, fever, or chills. No chest pain, palpitation, or difficulty with breathing. No nausea, vomiting or abdominal pain. No diarrhea or constipation. Patient portal review of renal ultrasound suggested medical renal disease process with left renal cyst lesion. No demonstrable hydronephrosis. He was advised hospitalization due to his ED evaluation suggestive of uncontrolled diabetes mellitus with significant hyperglycemia and worsening renal failure indices. His morbidities are as listed below. Hospital Course Hospital Course: Patient was admitted for significant hyperglycemia and acute on chronic kidney failure. He was managed with IV hydration and adjustment in his diabetes mellitus management. He will follow up with Dr. Sales as instructed upon discharge. Physical Exam Vital Signs: Temp Pulse Resp BP Pulse Ox 98.1 F 84 15 111/55 L 100 08/25/19 11:10 08/25/19 11:10 08/25/19 11:10 08/25/19 11:10 08/25/19 11:10 Intake & Output 08/24/19 08/25/19 08/26/19 06:59 06:59 06:59 Intake Total 18368 365 Balance 18368 365 Weight 72.7 kg 72.7 kg General appearance: PRESENT: no acute distress Head exam: PRESENT: atraumatic, normocephalic Eye exam: PRESENT: conjunctiva pink. ABSENT: pallor, scleral icterus Ear exam: PRESENT: normal external ear exam Mouth exam: PRESENT: moist Respiratory exam: PRESENT: clear to auscultation samantha Cardiovascular exam: PRESENT: RRR. ABSENT: diastolic murmur, rubs, systolic murmur GI/Abdominal exam: PRESENT: normal bowel sounds, soft. ABSENT: distended, guarding, mass, organomegaly, rebound, tenderness Extremities exam: ABSENT: pedal edema Musculoskeletal exam: PRESENT: ambulatory Neurological exam: PRESENT: alert, awake, oriented to person, oriented to place, oriented to time, oriented to situation, CN II-XII grossly intact. ABSENT: motor sensory deficit Psychiatric exam: PRESENT: appropriate affect, normal mood. ABSENT: homicidal ideation, suicidal ideation Skin exam: PRESENT: dry, warm Results Laboratory Results: WBC 7.2 10^3/uL (4.0-10.5) 08/24/19 05:07 RBC 4.32 10^6/uL (4.35-5.55) L 08/24/19 05:07 Hgb 13.2 g/dL (13.5-17.0) L 08/24/19 05:07 Hct 38.1 % (37.9-51.0) 08/24/19 05:07 MCV 88 fl (80-97) 08/24/19 05:07 MCH 30.6 pg (27.0-33.4) 08/24/19 05:07 MCHC 34.7 g/dL (32.0-36.0) 08/24/19 05:07 RDW 12.4 % (11.5-14.0) 08/24/19 05:07 Plt Count 158 10^3/uL (150-450) 08/24/19 05:07 Lymph % (Auto) 22.1 % (13-45) 08/24/19 05:07 [place] % (Auto) 12.6 % (3-13) 08/24/19 05:07 Eos % (Auto) 1.0 % (0-6) 08/24/19 05:07 Baso % (Auto) 0.3 % (0-2) 08/24/19 05:07 Absolute Neuts (auto) 4.6 10^3/uL (1.7-8.2) 08/24/19 05:07 Absolute Lymphs (auto) 1.6 10^3/uL (0.5-4.7) 08/24/19 05:07 Absolute Monos (auto) 0.9 10^3/uL (0.1-1.4) 08/24/19 05:07 Absolute Eos (auto) 0.1 10^3/uL (0.0-0.6) 08/24/19 05:07 Absolute Basos (auto) 0.0 10^3/uL (0.0-0.2) 08/24/19 05:07 Seg Neutrophils % 64.0 % (42-78) 08/24/19 05:07 VBG pH 7.31 (7.30-7.42) 08/23/19 15:00 VBG pCO2 43.2 mmHg (35-63) 08/23/19 15:00 VBG HCO3 21.1 mmol/L (20-32) 08/23/19 15:00 VBG Base Excess -5.1 mmol/L 08/23/19 15:00 Sodium 141.1 mmol/L (137-145) 08/24/19 05:07 Potassium 4.6 mmol/L (3.6-5.0) 08/24/19 05:07 Chloride 103 mmol/L (98-107) 08/24/19 05:07 Carbon Dioxide 24 mmol/L (22-30) 08/24/19 05:07 Anion Gap 14 (5-19) 08/24/19 05:07 BUN 60 mg/dL (7-20) H 08/24/19 05:07 Creatinine 3.29 mg/dL (0.52-1.25) H 08/24/19 05:07 Est GFR ( Amer) 23 (>60) L 08/24/19 05:07 Est GFR (MDRD) Non-Af 19 (>60) L 08/24/19 05:07 Glucose 117 mg/dL (75-110) H 08/24/19 05:07 POC Glucose 267 mg/dL (70-110) H 08/25/19 11:12 Hemoglobin A1c % 8.7 % (4.7-6.0) H 08/24/19 05:07 Calcium 9.7 mg/dL (8.4-10.2) 08/24/19 05:07 Total Bilirubin 0.8 mg/dL (0.2-1.3) 08/24/19 05:07 Direct Bilirubin 0.1 mg/dL (0.0-0.4) 08/24/19 05:07 Neonat Total Bilirubin Not Reportable 08/24/19 05:07 Neonat Direct Bilirubin Not Reportable 08/24/19 05:07 Neonat Indirect Bili Not Reportable 08/24/19 05:07 AST 23 U/L (17-59) 08/24/19 05:07 ALT 19 U/L (<50) 08/24/19 05:07 Alkaline Phosphatase 83 U/L (38-126) 08/24/19 05:07 Total Protein 7.3 g/dL (6.3-8.2) 08/24/19 05:07 Albumin 4.2 g/dL (3.5-5.0) 08/24/19 05:07 Triglycerides 107 mg/dL (<150) 08/24/19 05:07 Cholesterol 116.10 mg/dL (0-200) 08/24/19 05:07 LDL Cholesterol Direct 50 mg/dL (<100) 08/24/19 05:07 VLDL Cholesterol 21.0 mg/dL (10-31) 08/24/19 05:07 HDL Cholesterol 38 mg/dL (>40) L 08/24/19 05:07 Urine Color YELLOW 08/23/19 14:33 Urine Appearance CLEAR 08/23/19 14:33 Urine pH 5.0 (5.0-9.0) 08/23/19 14:33 Ur Specific [place] 1.013 08/23/19 14:33 Urine Protein NEGATIVE mg/dL (NEGATIVE) 08/23/19 14:33 Urine Glucose (UA) >=500 mg/dL (NEGATIVE) H 08/23/19 14:33 Urine Ketones NEGATIVE mg/dL (NEGATIVE) 08/23/19 14:33 Urine Blood NEGATIVE (NEGATIVE) 08/23/19 14:33 Urine Nitrite NEGATIVE (NEGATIVE) 08/23/19 14:33 Urine Bilirubin NEGATIVE (NEGATIVE) 08/23/19 14:33 Urine Urobilinogen NEGATIVE mg/dL (<2.0) 08/23/19 14:33 Ur Leukocyte Esterase TRACE (NEGATIVE) H 08/23/19 14:33 Urine WBC (Auto) 7 /HPF 08/23/19 14:33 Urine RBC (Auto) 1 /HPF 08/23/19 14:33 Urine Bacteria (Auto) TRACE /HPF 08/23/19 14:33 Urine Mucus (Auto) RARE /LPF 08/23/19 14:33 Urine Ascorbic Acid NEGATIVE (NEGATIVE) 08/23/19 14:33 Impressions: Renal Ultrasound 08/23/19 15:56 IMPRESSION: No acute findings. Bilateral cysts. Plan Health Concerns: Improve compliance with dietary restrictions and medication adherence. Plan of Treatment: D/C Glipizide and Metformin. Maintain on Tresiba Insulin, Humalog insulin sliding scale regimen. Continue with all other preadmnission home medications. Goals: HgbA1c < 7%, Blood pressure less that 130/80 mmHg, and LDL cholesterol < 70 mg/dL Stroke Is this a Stroke Patient?: No Acute Heart Failure - Is this a Heart Failure Patient?: No
[2019-08-25 15:33] LABS: ANION GAP 12 (5-19); BLOOD UREA NITROGEN 48 mg/dL (7-20); CALCIUM 9.8 mg/dL (8.4-10.2); CARBON DIOXIDE 24 mmol/L (22-30); CHLORIDE 106 mmol/L (98-107); GLUCOSE 89 mg/dL (75-110); POTASSIUM 4.6 mmol/L (3.6-5.0)
[2019-08-25 17:21] VITALS: BP 154/63
== END 2019-08-25 17:48 | disposition home or self-care (01) | DRG 684 ==
LOC: ER 13:44 → EH 16:18 → 4N 17:32 → OBSVTOIN 20:26
PROVIDERS: ADMIT Internal Medicine Geriatric Medicine; ATTEND Internal Medicine Geriatric Medicine
DX: N17.9 Acute kidney failure, unspecified (principal); E11.22 Type 2 diabetes mellitus with diabetic chronic kidney disease; I12.9 Hypertensive chronic kidney disease with stage 1 through stage 4 chronic kidney disease, or unspecified chronic kidney disease; E11.65 Type 2 diabetes mellitus with hyperglycemia; N18.3 Chronic kidney disease, stage 3 (moderate); E11.42 Type 2 diabetes mellitus with diabetic polyneuropathy; Z79.4 Long term (current) use of insulin; Z79.899 Other long term (current) drug therapy; Z79.82 Long term (current) use of aspirin
CPT/HCPCS: 36415; 76775; 80048; 80053; 80061; 81001; 82803; 82962; 83036; 85025; 93005; 93010; 96360; 99285; J1644; J1815; J3490; J7030

== ENCOUNTER → 2019-09-08 | Outpatient (CLI) | payer MEDICARE ==
--- NOTE | 2019-09-08 19:14 | RADIOLOGY REPORT (SQ) ---
EXAM DESCRIPTION: MRA ABDOMEN WITHOUT COMPLETED DATE/TIME: 09/08/2019 6:37 pm REASON FOR STUDY: (N17.9)ACUTE KIDNEY FAILURE, UNSPECIFIED N17.9 ACUTE KIDNEY FAILURE, UNSPECIFIED COMPARISON: None. TECHNIQUE: Coronal and Axial imaging with T1 and T2 weighting through the kidneys. 3-D MIPs performe d at the work station. CONTRAST TYPE AND DOSE: Noncontrast study. RENAL FUNCTION: Noncontrast study. LIMITATIONS: None. FINDINGS: KIDNEYS: Kidneys are of normal size. Bilateral cortical cysts. OTHER ABDOMINAL ORGANS: No significant finding. BONY STRUCTURES: No significant finding as visualized. VASCULAR STRUCTURES: No significant finding. RIGHT RENAL ARTERY: A single renal artery. Normal without evidence for stenosis. LEFT RENAL ARTERY: A single renal artery. Normal without evidence for stenosis. AORTA, SMA, AND CELIAC AXIS: No significant finding or stenosis. OTHER: No other significant finding. IMPRESSION: NORMAL RIGHT AND LEFT RENAL ARTERIES. TECHNICAL DOCUMENTATION: JOB ID: [id number] [employer]- All Rights Reserved Reading location - IP/workstation name: [email or web address]
== END ==
LOC: RAD 17:41
PROVIDERS: ATTEND Family Medicine
DX: N17.9 Acute kidney failure, unspecified (principal)
CPT/HCPCS: C8901

== ENCOUNTER → 2019-09-16 | Outpatient (CLI) | payer MEDICARE ==
[2019-09-16 08:57] LABS: ANION GAP 8 (5-19); BLOOD UREA NITROGEN 35 mg/dL (7-20); CALCIUM 9.9 mg/dL (8.4-10.2); CARBON DIOXIDE 30 mmol/L (22-30); CHLORIDE 104 mmol/L (98-107); GLUCOSE 186 mg/dL (75-110); POTASSIUM 4.4 mmol/L (3.6-5.0)
== END ==
LOC: OD 08:14
PROVIDERS: ATTEND Internal Medicine Nephrology
DX: N18.3 Chronic kidney disease, stage 3 (moderate) (principal)
CPT/HCPCS: 36415; 80048

== ENCOUNTER → 2019-10-19 | Outpatient (CLI) | payer MEDICARE ==
[2019-10-19 10:13] LABS: ANION GAP 7 (5-19); BLOOD UREA NITROGEN 39 mg/dL (7-20); CALCIUM 9.5 mg/dL (8.4-10.2); CARBON DIOXIDE 27 mmol/L (22-30); CHLORIDE 106 mmol/L (98-107); GLUCOSE 175 mg/dL (75-110)
== END ==
LOC: OD 08:50
PROVIDERS: ATTEND Internal Medicine Nephrology
DX: N17.9 Acute kidney failure, unspecified (principal); I12.9 Hypertensive chronic kidney disease with stage 1 through stage 4 chronic kidney disease, or unspecified chronic kidney disease; N18.3 Chronic kidney disease, stage 3 (moderate); E11.22 Type 2 diabetes mellitus with diabetic chronic kidney disease
CPT/HCPCS: 36415; 80048

== ENCOUNTER → 2020-06-21 | Outpatient (CLI) | payer MEDICARE ==
[2020-06-21 08:56] LABS: HEMATOCRIT 37.7 % (37.9-51.0); MEAN CORPUSCULAR HEMOGLOBIN 30.5 pg (27.0-33.4); MEAN CORPUSCULAR HGB CONC 34.5 g/dL (32.0-36.0); MEAN CORPUSCULAR VOLUME 89 fl (80-97); PLATELET COUNT 143 10^3/uL (150-450); RED BLOOD COUNT 4.25 10^6/uL (4.35-5.55); RED CELL DISTRIBUTION WIDTH 12.7 % (11.5-14.0); WHITE BLOOD COUNT 6.8 10^3/uL (4.0-10.5)
[2020-06-21 08:59] LABS: APPEARANCE,URINE CLEAR; BILIRUBIN,URINE NEGATIVE (NEGATIVE); COLOR,URINE YELLOW; GLUCOSE, URINE NEGATIVE (NEGATIVE); KETONES,URINE NEGATIVE (NEGATIVE); LEUKOCYTE ESTERASE,URINE NEGATIVE (NEGATIVE); NITRITE,URINE NEGATIVE (NEGATIVE); PROTEIN,URINE NEGATIVE (NEGATIVE); URINE SPECIFIC GRAVITY 1.011; UROBILINOGEN,URINE NEGATIVE mg/dL (<2.0)
[2020-06-21 09:20] LABS: ALBUMIN 4.4 g/dL (3.5-5.0); ANION GAP 13 (5-19); BLOOD UREA NITROGEN 27 mg/dL (7-20); CARBON DIOXIDE 25 mmol/L (22-30); CHLORIDE 104 mmol/L (98-107); GLUCOSE 189 mg/dL (75-110); PHOSPHORUS 3.9 mg/dL (2.5-4.5); POTASSIUM 4.2 mmol/L (3.6-5.0)
[2020-06-22 10:37] LABS: MICROALBUMIN URINE <3.0 ug/mL (Not Estab.)
== END ==
LOC: OD 08:13
PROVIDERS: ATTEND Internal Medicine Nephrology
DX: N18.30 Chronic kidney disease, stage 3 unspecified (principal)
CPT/HCPCS: 36415; 80069; 81001; 82043; 82570; 85027